=== PATIENT | female | born 1995 | race Caucasian/White ===

== ENCOUNTER 2018-09-28 06:10 | Inpatient (IN) | payer MEDICAID ==
[2018-09-28] MEDS ORDERED: MISOPROSTOL 200 MCG TAB PR ×2 (07:00→20:30)
[2018-09-28] MEDS ORDERED: METHYLERGONOVINE 0.2 MG INJ IM ×2 (07:00→20:30)
[2018-09-28] MEDS ORDERED: BUTORPHANOL 2 MG INJ IV (07:00)
[2018-09-28] MEDS ORDERED: OXYCODONE/ASPIRIN (4.88/325) TAB PO (07:00)
[2018-09-28] MEDS ORDERED: OXYTOCIN 30 UNITS/LR 500 ML IV ×3 (07:00→20:30)
[2018-09-28] MEDS ORDERED: CARBOPROST 250 MCG INJ IM ×2 (07:00→20:30)
[2018-09-28] MEDS ORDERED: AMPICILLIN 2 GM/NS (PMX) 100 ML (08:51)
[2018-09-28 08:59] LABS: ADD MAN DIFF? NO
[2018-09-28 09:02] LABS: WHITE BLOOD COUNT 8.3 10^3/ul (4.8-10.8)
[2018-09-28 09:02] LABS: BASOPHILS % 0.4 % (0.0-2.0); EOSINOPHILS % 0.5 % (0.0-7.0); HEMATOCRIT 35.9 % (37.0-47.0); HEMOGLOBIN 11.8 g/dl (12.0-16.0); LYMPHOCYTES # 1.3 10^3/ul (0.8-2.9); LYMPHOCYTES % 15.3 % (15.0-51.0); MEAN CORPUSCULAR HEMOGLOBIN 29.8 pg (29.0-33.0); MEAN CORPUSCULAR HGB CONC 32.9 g/dl (32.0-37.0); MEAN CORPUSCULAR VOLUME 90.7 fl (82.0-101.0); MEAN PLATELET VOLUME 11.1 fl (7.4-10.4); MONOCYTE # 0.6 10^3/ul (0.3-0.9); NEUTROPHIL # 6.4 10^3/ul (1.6-7.5); NEUTROPHILS % 76.2 % (39.0-77.0); PLATELET COUNT 189 10^3/UL (140-415); RED BLOOD COUNT 3.96 10^6/ul (4.20-5.40); RED CELL DISTRIBUTION WIDTH 13.8 % (11.5-14.5)
[2018-09-28] MEDS: LACTATED RINGER'S 1,000 ML IV ×2 (09:04→18:39)
[2018-09-28] MEDS: AMPICILLIN 2 GM/NS (PMX) 100 ML IVPB (09:14)
[2018-09-28 09:21] LABS: INR 0.84; PROTIME 11.6 Sec (11.9-14.9); PT RATIO 0.9
[2018-09-28 09:22] LABS: PARTIAL THROMBOPLASTIN TIME 27.1 Sec (23.0-35.0)
[2018-09-28] MEDS: OXYTOCIN 30 UNITS/LR 500 ML IV ×3 (09:34→20:19)
[2018-09-28 09:58] LABS: HEPATITIS B SURFACE ANTIGEN NEGATIVE (NEGATIVE)
[2018-09-28] MEDS: AMPICILLIN 1 GM/NS (PMX) 50 ML IVPB ×2 (13:34→17:26)
[2018-09-28 15:46] LABS: RAPID PLASMA REAGIN NONREACTIVE (NR)
[2018-09-28] MEDS: LIDOCAINE 1% (MPF) 30 ML INJ INJ (20:05)
[2018-09-28] MEDS: LACTATED RINGER'S 1,000 ML IV* (20:19)
[2018-09-28] MEDS ORDERED: ZOLPIDEM 5 MG TAB PO (20:30)
[2018-09-28] MEDS ORDERED: ONDANSETRON 4 MG INJ IV (20:30)
[2018-09-28] MEDS ORDERED: NA PHOSPHATE/BIPHOS 133 ML ENEMA PR (20:30)
[2018-09-28] MEDS ORDERED: IBUPROFEN 600 MG TAB PO (20:30)
[2018-09-28] MEDS ORDERED: DIPHENHYDRAMINE 25 MG CAP PO (20:30)
[2018-09-28] MEDS ORDERED: METHYLERGONOVINE 0.2 MG TAB PO (20:30)
[2018-09-28] MEDS ORDERED: MAGNESIUM HYDROXIDE 30ML CUP PO (20:30)
[2018-09-28] MEDS ORDERED: HYDROCODONE/APAP (5/325) TAB PO ×2 (20:30)
[2018-09-28] MEDS: SENNA/DOCUSATE NA (8.6MG/50MG) TAB PO (21:51)
[2018-09-28] MEDS: BENZOCAINE 20% 56 ML SPRAY TOP (21:52)
[2018-09-28] MEDS: WITCH HAZEL/GLYCERIN PAD PR (21:52)
[2018-09-28] MEDS: LANOLIN HPA 1 PKT TOP (21:52)
[2018-09-29] MEDS ORDERED: AMPICILLIN 2 GM/NS (PMX) 100 ML IV
[2018-09-29] MEDS: OXYTOCIN 30 UNITS/LR 500 ML IV (00:01)
[2018-09-29 08:24] LABS: ADD MAN DIFF? NO
[2018-09-29 08:30] LABS: BASOPHILS % 0.2 % (0.0-2.0); EOSINOPHILS % 0.2 % (0.0-7.0); HEMATOCRIT 33.2 % (37.0-47.0); LYMPHOCYTES % 10.4 % (15.0-51.0); MEAN CORPUSCULAR HEMOGLOBIN 29.4 pg (29.0-33.0); MEAN CORPUSCULAR HGB CONC 33.1 g/dl (32.0-37.0); MEAN CORPUSCULAR VOLUME 88.8 fl (82.0-101.0); MONOCYTE # 1.4 10^3/ul (0.3-0.9); MONOCYTES % 7.3 % (0.0-11.0); NEUTROPHIL # 15.5 10^3/ul (1.6-7.5); NEUTROPHILS % 81.2 % (39.0-77.0); PLATELET COUNT 174 10^3/UL (140-415); RED BLOOD COUNT 3.74 10^6/ul (4.20-5.40); RED CELL DISTRIBUTION WIDTH 13.4 % (11.5-14.5)
[2018-09-29 08:30] LABS: WHITE BLOOD COUNT 19.1 10^3/ul (4.8-10.8)
[2018-09-29] MEDS: SENNA/DOCUSATE NA (8.6MG/50MG) TAB PO ×2 (09:29→21:27)
[2018-09-29] MEDS: IBUPROFEN 600 MG TAB PO (14:21)
[2018-09-30 08:59] LABS: ADD MAN DIFF? NO
[2018-09-30] MEDS: SENNA/DOCUSATE NA (8.6MG/50MG) TAB PO (09:00)
[2018-09-30 09:02] LABS: WHITE BLOOD COUNT 10.8 10^3/ul (4.8-10.8)
[2018-09-30 09:02] LABS: BASOPHILS % 0.3 % (0.0-2.0); EOSINOPHILS # 0.1 10^3/ul (0.0-0.5); EOSINOPHILS % 0.6 % (0.0-7.0); HEMATOCRIT 32.1 % (37.0-47.0); HEMOGLOBIN 10.4 g/dl (12.0-16.0); LYMPHOCYTES # 2.2 10^3/ul (0.8-2.9); LYMPHOCYTES % 20.5 % (15.0-51.0); MEAN CORPUSCULAR HGB CONC 32.4 g/dl (32.0-37.0); MEAN CORPUSCULAR VOLUME 92.5 fl (82.0-101.0); MEAN PLATELET VOLUME 10.7 fl (7.4-10.4); MONOCYTE # 0.7 10^3/ul (0.3-0.9); MONOCYTES % 6.6 % (0.0-11.0); NEUTROPHIL # 7.7 10^3/ul (1.6-7.5); NEUTROPHILS % 71.3 % (39.0-77.0); PLATELET COUNT 158 10^3/UL (140-415); RED BLOOD COUNT 3.47 10^6/ul (4.20-5.40); RED CELL DISTRIBUTION WIDTH 14.1 % (11.5-14.5)
[2018-09-30] MEDS: VARICELLA VACCINE LIVE/PF 1,350 UNIT/0.5 ML ML SC* (09:21)
[2018-09-30] MEDS: MEASLES,MUMPS,RUBELLA VACCINE INJ SC* (10:50)
[2018-09-30] MEDS: DIPHTH/TET/ACEL PERTUSS (ADULT) 0.5 ML VIAL IM* (11:28)
[2018-09-30] MEDS: IBUPROFEN 600 MG TAB PO (13:05)
== END 2018-09-30 18:55 | disposition home or self-care (01) | DRG 807 ==
LOC: L-D 06:10 → PP1 20:49
PROVIDERS: Obstetrics & Gynecology
PROC: 10E0XZZ Delivery of Products of Conception, External Approach (ICD-10-PCS; principal; 2018-09-28)
PROC: 3E033VJ Introduction of Other Hormone into Peripheral Vein, Percutaneous Approach (ICD-10-PCS; 2018-09-28)
DX: O69.81X0 Labor and delivery complicated by cord around neck, without compression, not applicable or unspecified (principal); Z37.0 Single live birth; Z3A.39 39 weeks gestation of pregnancy
CPT/HCPCS: 76815; 85025; 85610; 85730; 86592; 86850; 86900; 86901; 87340; 90686; 90715; 90716; 99464